=== PATIENT | female | born 1990 | race Caucasian/White ===

== ENCOUNTER 2019-07-20 07:54 | Emergency (ER) | payer BC ==
[2019-07-20 08:03] VITALS: BP 135/95
--- NOTE | 2019-07-20 09:27 | UC ---
Knee Pain HPI - HPI Summary HPI Summary: A FEW DAYS AGO NOTICED SOME LEFT KNEE DISCOMFORT AFTER GOING FOR A HIKE. YESTERDAY WHEN SHE STEPPED OUT OF HER CAR THE PAIN BECAME WORSE. CAME IN FOR EVALUATION TODAY THE PAIN IS PERSISTENT. IBUPROFEN DOES HELP. NO PREVIOUS KNEE INJURIES. - History of Current Complaint Chief Complaint: UCLowerExtremity Stated Complaint: KNEE INJURY Time Seen by Provider: 07/20/19 08:55 Hx Obtained From: Patient Hx Last Menstrual Period: 07/11/19 Onset/Duration: Gradual Onset, Lasting Days, Still Present Severity Initially: Moderate Severity Currently: Moderate Pain Intensity: 7 Pain Scale Used: 0-10 Numeric Character: Sharp Aggravating Factor(s): Weight Bearing Alleviating Factor(s): Rest Associated Signs And Symptoms: Positive: Negative Able to Bear Weight: Yes - Allergies/Home Medications Allergies/Adverse Reactions: Allergies Allergy/AdvReac Type Severity Reaction Status Date / Time No Known Allergies Allergy Verified 07/20/19 08:04 PMH/Surg Hx/FS Hx/Imm Hx Previously Healthy: Yes - Surgical History Surgical History: None - Family History Known Family History: Positive: Non-Contributory - Social History Alcohol Use: Occasionally Substance Use Type: None Smoking Status (MU): Never Smoked Tobacco Have You Smoked in the Last Year: No Review of Systems All Other Systems Reviewed And Are Negative: Yes Constitutional: Positive: Negative Skin: Positive: Negative Respiratory: Positive: Negative Cardiovascular: Positive: Negative Gastrointestinal: Positive: Negative Musculoskeletal: Positive: Arthralgia. Negative: Decreased ROM, Edema Physical Exam Triage Information Reviewed: Yes Appearance: Well-Appearing, No Pain Distress, Well-Nourished Vital Signs: Initial Vital Signs Temp 98.6 F 07/20/19 08:00 Pulse 92 07/20/19 08:00 Resp 18 07/20/19 08:00 BP 135/95 07/20/19 08:00 Pulse Ox 99 07/20/19 08:00 Vital Signs Reviewed: Yes Eyes: Positive: Conjunctiva Clear ENT: Positive: Hearing grossly normal Neck: Positive: Supple Respiratory: Positive: No respiratory distress, No accessory muscle use Cardiovascular: Positive: Pulses Normal Abdomen Description: Positive: Soft Musculoskeletal: Positive: ROM Intact, No Edema, Other: - LEFT KNEE: NO JOINT LINE TENDERNESS OR TENDERNESS OVER ANY BONY PROMINENCES. MCL AND LCL INTACT TO STRESS TESTING. NEG LACHMANS. NEG DRAWERS SIGNS. NEG MCMURRAYS. EQUIVOCAL PATELLAR APPREHENSION TEST. MILD TENDERNESS OVER PATELLAR LIGAMENT/DISTAL MEDIA ASPECT OF KNEE BUT NONE OVER QUADRICEPS TENDON. Neurological: Positive: Alert Psychological: Positive: Age Appropriate Behavior Skin: Negative: Rashes Knee Pain Course/Dx - Course Course Of Treatment: SUSPECT PES ANSERINE BURSITIS. ERON WRAP APPLIED BY RN. REST, ICE, COMPRESS, ELEVATE. OTC MEDICATIONS NEEDED FOR DISCOMFORT. ADVISED FOLLOW-UP WITH ORTHOPEDICS IF NOT IMPROVING OVER THE NEXT COUPLE OF WEEKS. PATIENT DECLINED X- RAY TODAY WHICH I THINK IS REASONABLE. - Differential Dx/Diagnosis Provider Diagnosis: Bursitis of left knee Discharge ED - Sign-Out/Discharge Documenting (check all that apply): Patient Departure All imaging exams completed and their final reports reviewed: No Studies - Discharge Plan Condition: Stable Disposition: HOME Patient Education Materials: Knee Bursitis (ED) Referrals: Galen Palencia MD [Medical Doctor] - Additional Instructions: I SUSPECT YOU HAVE A BURSITIS. YOUR SYMPTOMS SHOULD IMPROVE SIGNIFICANTLY OVER THE NEXT FEW WEEKS WITH REST AND NSAIDS. IF YOU DO NOT IMPROVE EXPECTED FOLLOW-UP WITH YOUR PCP OR ORTHO. YOU MAY BENEFIT FROM IMAGING AT THAT TIME. REST. OTC IBUPROFEN OR ALEVE NEEDED FOR DISCOMFORT. BE SURE TO GO THROUGH SLOW RANGE OF MOTION AND STRETCHING EXERCISES DAILY YOU ARE ABLE TO PREVENT STIFFENING UP AND MAKING THE DISCOMFORT WORSE. CALL THE NUMBER BELOW FOR ASSISTANCE IN ESTABLISHING WITH A PCP An additional resource available to assist in finding the appropriate physician for your health care needs is [facility] ([facility]). You may contact them by calling [phone]. - Billing Disposition and Condition Condition: STABLE Disposition: Home
== END 2019-07-20 09:27 | disposition home or self-care (01) ==
LOC: UCEAST 07:54
DX: M70.52 Other bursitis of knee, left knee (principal)
CPT/HCPCS: 99211; G0463

== ENCOUNTER 2020-03-19 11:30 | Emergency (ER) | payer BC ==
[2020-03-19 11:58] VITALS: BP 131/88
== END 2020-03-19 11:55 | disposition home or self-care (01) ==
LOC: UCEAST 11:30